=== PATIENT | female | born 1990 | race Caucasian/White ===

== ENCOUNTER 2025-04-20 07:53 | Emergency (ER) | payer BC, SELFPAY ==
--- OUTSIDE RECORDS SUMMARY | 2024-02-18 08:05 | XMS_ITS ---
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 Name Role Phone Scar Wahl Primary Care Provider [phone] REASON FOR VISIT 6 wk Pstpart Encounters Encounter Location Date Provider Diagnosis [facility] [address] [place] [address] 02/18/2024 Scar Wahl Plan Of Treatment No Information Progress Notes * ZHAO, ClaAshokOB: 9 (34 yo F)Acc No.[id number]:02/18/2024 Visit Patient: Aquilino PALACIOS Claire Provider: Falguni Wahl :1990 A ge:33 Y S ex:Female Date:02/18/2024 Address:[address] [place] [address], [address], [id number] Structured Data:Immunization Data Protection : No Subjective: * Chief Complaints: * 1 . 6 wk Pstpart. * Medical History: Objective: * Vitals: Assessment: Plan: * Treatment: * * Electronic signature of Dayron Wahl CNM on 04/20/2025 at 08:56 AM EDT Sign off status: Pending * Provider: Falguni Wahl Date: 02/18/2024 Generated for Macarena marley/Fabruno/eTransmitting on: 04/20/2025 08:56 AM EDT
[2025-04-20] VITALS (7 sets, daily range): BP systolic 127–133; BP diastolic 88–96; PULSE 57–72; RESP 18–20; TEMP 36; O2SAT 99–100; BMI 20.8
--- OUTSIDE RECORDS SUMMARY | 2025-04-20 07:56 | XMS_ITS | Patient Health Record ---
Author Organization [facility] Address [address] [facility] [place] [address] Care Team Providers Care Petrophysicist Name Role Phone ChaoScar marshall Primary Care Provider [phone] Allergies No Known Allergies Reason For Referral No Information Immunizations Vaccine Route Administration Date Status Comme nts Tdap (Adacel) IM Intramuscular 10/08/2023 Administered Plan Of Treatment No Information Insurance Providers Payer Name Payer Address Payer Phone Subscriber Number Group Number Insured Name Patient Relationship to Insured Coverage Start Date Coverage End Date [facility] [employer] [address] [place], [place] [address] [phone] [id number] Linda Zhao Self - patient is the insured
--- OUTSIDE RECORDS SUMMARY | 2025-04-20 07:56 | XMS_ITS | Clinical Summary ---
Author Organization [facility] Address [address] [place] [id number] Care Team Providers Care Autocad Draftsman Name Role Phone Dhruv, Romy Benavides MD Primary Care Provider Allergies No known active allergies Medications SPRINTEC 0.25-35 mg-mcg tabletIndication s:Uses control TAKE 1 TABLET BY MOUTH EVERY DAY 84 tablet 06/21/2019 Active Active Problems Problem Noted Date Diagnosed Date s/p ACL reconstruction, bilaterally 11/07/2011 Regular astigmatism 04/20/2008 Immunizations Immunization Administration Dates Next Due AMB Influenza, IIV3 (Age >=3 years) Preserve Free (Flu Clinic Only) 09/18/2008 DTP 03/18/1991, 0,01/11/1990,10/16 DTaP 04/19/1995 Hepatitis A (Peds) 01/02/1997,07/09/1996, 996 Hepatitis B (Peds) 01/02/1997,07/09/1996, 996 Human Papilloma Virus Vaccine 02/03/2009, 008,08/01/2007 Inactivated Polio Vaccine 04/19/2010 Influenza A (H1N1), Inactiva keyon (Age >=3 Years) 08/27/2009 Influenza, IIV3 (Age >=3 years) 09/15/2013,08/01 MMR 04/29/2002,1989 Meningococcal Vaccine (Menactra) 04/05/2005 Oral Polio Vaccine 04/19/1991, 1,01/11/1990,10/16 Td (Age >=7 Years) 04/29/2002 Tdap 02/05/2012 Family History Medical History Relation Name Comments Good Health Father Good Health Mother Hypertension Paternal Grandmother Cancer-breast No Family History Cancer-colon No Family History Diabetes No Family History Heart Disease No Family History Relation Name Status Comments Father Mother Paternal Grandmother Social History Tobacco Use Types Packs/Day Years Used Date Smoking Tobacco: Never Smokeless Tobacco: Never Tobacco Cessation:Counseling Given: Yes Alcohol Use Standard Drinks/Week Comments Yes 0 (1 standard drink = 0.6 oz pur e alcohol) less than once weekly PHQ-2 Answer Date Recorded PHQ-2 Score 0 11/16/2018 Social Connections Answer Date Recorded Frequency of Communication with Friends and Fami ly Not on file 09/17/2021 Financial Resource Strain Answer Date R ecorded Difficulty of Paying Living Expenses Not on file 09/17/2021 Difficulty of Paying Living Expenses Not on file 09/17/2021 Comments No Sex and Gender Information Value Date Recorded Sex Assigned at Not on file 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 Gender Identity Not on file Sexual Orientation Not on file Obstetrics History Para Term AB IAB SAB Ectopic Multiple Livin g Live Births 0 0 0 0 0 0 0 0 0 0 Last Filed Vital Signs Vital Sign Reading Time Taken Comments Blood Pressure 124/89 02/18/2021 3:43 PM CDT Pulse 75 02/18/2021 3:43 PM CDT Temperature 36.7 C (98 F) 03/16/2014 6:03 PM CDT Respiratory Rate 12 03/16/2014 6:03 PM CDT Oxygen Saturation 97% 02/18/2021 3:43 PM CDT Inhaled Oxygen Concentration - - Weight 56 kg (123 lb 6.4 oz) 02/18/2021 3:43 PM CDT Height 167.6 cm (5' 6) 02/18/2021 3:43 PM CDT Body Mass Index 19.92 02/18/2021 3:43 PM CDT Plan of Treatment Upcoming Encounters Date Type Department Care Team (Late st Contact Info) Description 04/20/2025 9:50 AM CDT Office Visit [facility] [address] [place] [address] Ameena Vann MD [address] [place] [address] Health Maintenance Due Date Last Done Comments HIV for age 15-65 2004 Hepatitis C screening for age 18-79 2007 Pap test for age 21-65 12/09/2018 6, 05/09/2013, 02/05/2012, Additional history exists Depression screening for age 12+ 04/25/2019 04/25/2018 Tetanus booster 02/04/2022 02/05/2012, 04/29/2002 BMI (ht and wt on same day) for age 18+ 02/18/2022 02/18/2021, 04/25/2018, 12/10/2015 COVID-19 vaccine series ( season) 2024 01/05/2021, 12/15/2020 Influenza Vaccine (#1) 2025 3, 09/18/2008, 08/01/2007 Hepatitis B series for 19+ Completed 01/02, 07/09/1996, 06/06/1996 Pneumococcal series for age 6-49 Aged Out No longer eligible based on patient's age to complete this topic Medical Devices Implanted Type Area Contract Preparer Device Identifier Shelf Expiration Date Model / Serial / Lot [id number] 62putty Bone Dbx 5cc [id number] [[id number]] Implanted:Qty: 1 on 05/25/2006 at [facility] Explanted:at [facility] (Quantity not on file) Bone Implants Left: Knee [employer] 02/10/2007 [id number]# / [id number] / Screw Interfer 8x20 [id number] - [id number] Implanted:Qty: 1 on 05/25/2006 at [facility] Ortho Imp.,Screws & Plates Left: Knee [employer]/CONMED [id number]# / / [id number] Screw Interfer 8x25 [id number] - [id number] Implanted:Qty: 1 on 05/25/2006 at [facility] Left: Knee [employer] [id number]# / / [id number] Fast Fix Curved Needle Implanted:Qty: 2 on 05/25/2006 at [facility] Left: Knee [id number] / / Description:FAST FIX CURVED NEEDLE Procedures Procedure Name Priority Date/Time Associated Diagnosis Comments PLUG DRILL OPERATOR THIN PREP PAP SCREEN IMAGED Routine 12/10/2015 12:10 PM CDT Preventative health care from Last 3 Months or Most Recently Relevant to Health Maintenance Results * PLUG DRILL OPERATOR THIN PREP PAP SCREEN IMAGED (12/10/2015 12:10 PM CDT) PLUG DRILL OPERATOR CYTOLOGY See Anatomic Pathology case 12/11/2015 1:[address] [facility] Specimen (specimen) (Cervical) Non-Blood / Unknown 12/10/2015 12:10 PM CDT 12/10/2015 12:10 PM CDT us Joy Lentz MD PATHOLOGY/CYTOLOG Y Final Result [facility] [address] [place] [address], [place] from Last 3 Months or Most Recently Relevant to Health Maintenance Care Teams Autocad Draftsman Relationship Specialty Start Date End Date Romy Bartlett MD [address] [place] [address] PCP - General Family Practice 04/12/11
[2025-04-20 08:35] LABS: Appearance Urine Clear (Clear)
[2025-04-20 08:37] LABS: Ur HCG Qualitative* Negative (Negative)
--- NOTE | 2025-04-20 08:51 | CRLHL7_ITS ---
For Patients: As a result of the Century Cures Act, medical imaging exams and procedure reports are released immediately into your electronic medical record. You may view this report before your referring provider. If you have questions, please contact your health care provider. INDICATION: Left-sided pelvic pain. TECHNIQUE: Ultrasound pelvis transabdominal and transvaginal for better assessment or to better visualize the endometrium. Real-time sonographic images with spectral and color Doppler imaging of the ovaries were obtained. COMPARISON: None. FINDINGS: Uterus measures 7.6 x 3.4 x 4.8 cm. No discrete uterine mass. Endometrial stripe measures 9 mm. No endometrial fluid. Right ovary is 3.6 x 2.2 x 1.9 cm and is within normal limits. Normal-appearing color and spectral Doppler flow in the right ovary. Right adnexal region is unremarkable. Left ovary is 3.7 x 1.5 x 1.5 cm. Collapsing or corpus luteum cyst measures 1.5 cm. Normal-appearing color and spectral Doppler flow in the left ovary. Left adnexal region is unremarkable. Small pelvic free fluid. IMPRESSION: 1. Collapsing or corpus luteum cyst in the left ovary measures 1.5 cm. 2. Small pelvic free fluid is likely physiologic. Dictated by Jacky Merrill MD @ 04/20/2025 10:04:13 AM Dictated by: Jacky Merrill MD @ 04/20/2025 10:04:29 (Electronically Signed)
[2025-04-20 09:04] LABS: Lactate* 0.8 mmol/L (0.5-1.9)
[2025-04-20 09:07] LABS: Hematocrit 39.6 % (33.0-51.0); Hemoglobin* 13.1 gm/dL (12.0-16.0); Immature Granulocytes Abs Auto 0.00 K/uL (0.00-0.30); Immature Granulocytes Pct Auto 0.0 %; Mean Corpuscular HGB Conc 33 gm/dL (32-36); Mean Corpuscular Hemoglobin 29 pg (26-34); Mean Corpuscular Volume 88 fL (80-100); RDW Coefficient of Variation % 12.4 % (11.5-15.5); Red Blood Count 4.48 m/uL (4.00-5.20); White Blood Count* 3.74 K/uL (4.50-11.00)
[2025-04-20 09:22] LABS: Lymphocytes Absolute Auto 1.20 K/uL (0.90-2.90); Slide Review Reflex No
[2025-04-20 09:23] LABS: Chloride* 104 mmol/L (96-114)
[2025-04-20 09:24] LABS: Albumin* 4.2 g/dL (3.3-5.0); Potassium* 4.0 mmol/L (3.6-5.1); Sodium* 135 mmol/L (135-149)
[2025-04-20 09:27] LABS: Alanine Aminotransferase* 15 U/L (4-35); Alkaline Phosphatase* 53 U/L (40-150); Anion Gap 6 mEq/L (7-15); Aspartate Amino Transferase* 27 U/L (12-35); Bilirubin Direct* 0.0 mg/dL (0.0-0.5); Bilirubin Total* 1.2 mg/dL (0.1-1.5); Blood Urea Nitrogen* 17 mg/dL (5-24); Calcium* 8.8 mg/dL (8.4-10.6); Carbon Dioxide* 25 mmol/L (20-32); Creatinine* 0.8 mg/dL (0.5-1.5); Est. Creatinine Clearance* 90.66; Estimated Glomerular Filt Rate 98 ml/min; Glucose* 87 mg/dL (60-115); Total Protein* 6.7 g/dL (6.0-8.3)
[2025-04-20 09:33] LABS: HCG Qualitative Serum* Negative (Negative)
[2025-04-20] MEDS: ONDANSETRON 2 MG/ML inj 4 MG IVP (09:35)
[2025-04-20 09:45] LABS: Procalcitonin* < 0.03 ng/mL (<0.50)
--- NOTE | 2025-04-20 11:46 | ED_ITS ---
HPI - Abdominal Pain General Date Seen: 04/20/25 Chief Complaint: Abdominal Pain Stated Complaint: abdominal pain Time Seen by Provider: 04/20/25 08:53 Source: patient and family Mode of arrival: ambulatory Limitations: no limitations History of Present Illness HPI narrative: Patient is a aurora 34-year-old female who presents here with her significant other for evaluation of acute onset of left lower sided pelvic pain, this woke her up from sleep at approximately 4:00 a.m., with some nausea, she did not take any medications for this, the pain is crampy in nature with some radiation to her did back. She does not have any dysuria frequency her meds her E associated with this, she has had no diarrhea, she does remember having this before was fine yesterday, denies any fevers chills or sweats, there is no cough cold-like symptoms, recent delivery of a vaginal delivery 15 months ago. She is just starting to get her periods with her last period on April 02. She is the daughter of both Humberto and Rocio Zhao. Related Data Home Medications ?Medication ?Instructions ?Recorded ?Confirmed No Known Home Medications 04/20/2501/09 Allergies Allergy/AdvReac Type Severity Reaction Status Date / Time No Known Drug Allergies Allergy Verified 04/20/25 08:38 Review of Systems Status of ROS Reports: 10 or more systems reviewed and unremarkable except as noted in History and below [facility] Social History Smoking Status: Never smoker How often do you have a drink containing alcohol: monthly or less AUDIT-C Alcohol total score: 1 Non-prescribed substance use: denies use Exam Narrative: Exam Narrative: She appears in some mild distress, vital signs are listed in normal, pupils equal round reactive to light there is no scleral icterus redness or TMs are normal bilaterally oropharynx is normal good hydration status no redness, no trismus mouth opening normal no lymphadenopathy anterior posterior chains, there is no meningismus noted, chest is good air entry bilaterally with no wheezing crackles noted, her heart sounds are normal her abdomen is scaphoid, deep in the left lower quadrant there is some mild discomfort, no peritoneal signs no CVA tenderness, no organomegaly is noted, bowel sounds are normal, skin reveals no petechiae rashes neurologically intact moving all extremities. Const: Vital Signs, click to edit/add: Vital Signs - 24 hr 04/20/25 08:07 04/20/25 09:42 04/20/25 09:43 Temperature 96.8 F L Pulse Rate 57 L 72 Pulse Rate [Pulse Oximeter] 64 Respiratory Rate 20 18 Blood Pressure 133/96 H Blood Pressure [Ri ght Upper Arm] 127/88 Pulse Oximetry 99 99 100 Oxygen Delivery Me thod Room Air 04/20/25 09:45 04/20/25 10:00 04/20/25 10:02 Temperature Pulse Rate 63 72 66 Pulse Rate [Pulse Oximeter] Respiratory Rate Blood Pressure 129/96 H Blood Pressure [Ri ght Upper Arm] Pulse Oximetry 100 100 100 Oxygen Delivery Me thod 04/20/25 10:15 Temperature Pulse Rate 67 Pulse Rate [Pulse Oximeter] Respiratory Rate Blood Pressure Blood Pressure [Ri ght Upper Arm] Pulse Oximetry 100 Oxygen Delivery Me thod Course Course ED Course: Her pain improved here with are coarse, I discussed with her that her vital signs are normal, her ultrasound is consistent with a ruptured corpus luteum cyst, and I discussed this with her she does not have any hematuria, or any signs of renal colic, and I would prefer not to do a CT scan in this incidents, as increasing her chance with extraneous radiation. She was in agreement, I think pain medication to have on hand would be important, review of the INDUSTRIAL SAFETY ENGINEER did not show any outstanding prescriptions or any concerning behavior. Tylenol ibuprofen her discussed, with worsening signs and symptoms are discussed also the per follow-up here. I do not think she needs follow-up with OBGYN at the present time. Vital Signs Vital signs: Initial Vital Signs Temperature 96.8 F L 04/20/25 08:07 Temperature Source Temporal Artery Scan 04/20/25 08:07 Pulse Rate 64 04/20/25 08:07 Respiratory Rate 20 04/20/25 08:07 Blood Pressure 127/88 04/20/25 08:07 Blood Pressure Mean 101 04/20/25 08:07 Pulse Oximetry 99 04/20/25 08:07 Oxygen Delivery Method Room Air 04/20/25 08:07 Vital Signs Temperature 96.8 F L 04/20/25 08:07 Pulse Rate 64 04/20/25 08:07 Respiratory Rate 20 04/20/25 08:07 Blood Pressure 127/88 08/04/25 08:07 Pulse Oximetry 99 04/20/25 08:07 Oxygen Delivery Method Room Air 04/20/25 08:07 Temperature 96.8 F L 04/20/25 08:07 Pulse Rate 67 04/20/25 10:15 Respiratory Rate 18 04/20/25 09:43 Blood Pressure 129/96 H 04/20/25 10:02 Pulse Oximetry 100 04/20/25 10:15 Oxygen Delivery Method Room Air 04/20/25 08:07 Medications Administered Medications: Discontinued Medications Generic Name Dose Route Start Last Admin Trade Name Freq PRN Reason Stop Dose Admin Sodium Chloride 1,000 mls @ 1,000 mls/hr 04/20/25 09:00 04/20/25 10:25 0.9 % Sodium Chloride 1000 Ml IV 04/20/25 09:59 Infused .Q1H KVNG Infusion Sodium Chloride 1,000 mls @ 1,000 mls/hr 04/20/25 09:00 04/20/25 10:25 0.9 % Sodium Chloride 1000 Ml IV 04/20/25 09:59 Not Given .Q1H KVNG Ketorolac Tromethamine 30 mg 04/20/25 08:51 04/20/25 09:38 Ketorolac 30 Mg/Ml Inj IVP 04/20/25 08:52 15 mg ONCE ONE Administration Ondansetron HCl 4 mg 04/20/25 08:51 04/20/25 09:35 Ondansetron 2 Mg/Ml Inj IVP 04/20/25 08:52 4 mg ONCE ONE Administration MDM - Abdominal Pain MDM Narrative Medical decision making narrative: During the evaluation of this patient I considered multiple differential diagnosis including life-threatening differentials which are appendicitis, aortic aneurysm, mesenteric ischemia, bowel perforation, ectopic , volvulus and bowel obstruction, other differential diagnosis include but are not limited to inflammatory bowel disease, cholecystitis, pancreatitis, hepatitis, gastritis, GERD, diverticulitis, peptic ulcer disease, pyelonephritis/UTI, renal colic/stone, pelvic inflammatory disease, cervicitis, endometritis, intrauterine , dysfunctional uterine bleeding, ovarian cyst/torsion, spontaneous as well as other etiologies Medical Records Attestation: I reviewed the patient's medical records. Lab Data Attestation: I reviewed the patient's lab results. Labs: Lab Results 04/20/25 04/20/25 Range/Units 08:25 08:46 WBC 3.74 L (4.50-11.00) K/uL RBC 4.48 (4.00-5.20) m/uL Hgb 13.1 (12.0-16.0) gm/dL Hct 39.6 (33.0-51.0) % MCV 88 (80-100) fL MCH 29 (26-34) pg MCHC 33 (32-36) gm/dL RDW Coeff of Betzaida 12.4 (11.5-15.5) % Plt Count 195 (140-440) K/uL Neut % (Auto) 58.8 (42.0-72.0) % Lymph % (Auto) 31.6 (20-44) % [place] % (Auto) 7.2 (0.0-11.0) % Eos % (Auto) 1.3 (0.0-7.0) % Baso % (Auto) 1.1 (0.0-3.0) % Neut # (Auto) 2.20 (1.7-7.0) K/uL Lymph # (Auto) 1.20 (0.90-2.90) K/uL [place] # (Auto) 0.30 (0.00-0.90) K/UL Eos # (Auto) 0.00 (0.00-0.50) K/uL Baso # (Auto) 0.00 (0.00-0.30) K/uL Abs Immat Gran (auto) 0.00 (0.00-0.30) K/uL Imm/Tot Granulo (auto) 0.0 % Sodium 135 (135-149) mmol/L Potassium 4.0 (3.6-5.1) mmol/L Chloride 104 (96-114) mmol/L Carbon Dioxide 25 (20-32) mmol/L Anion Gap 6 L (7-15) mEq/L BUN 17 (5-24) mg/dL Creatinine 0.8 (0.5-1.5) mg/dL Estimated Creat Clear 90.66 Estimated GFR 98 ml/min Glucose 87 (60-115) mg/dL Calcium 8.8 (8.4-10.6) mg/dL Total Bilirubin 1.2 (0.1-1.5) mg/dL Direct Bilirubin 0.0 (0.0-0.5) mg/dL AST 27 (12-35) U/L ALT 15 (4-35) U/L Alkaline Phosphatase 53 (40-150) U/L C-Reactive Protein < 0.5 L (0.5-1.0) mg/dL Total Protein 6.7 (6.0-8.3) g/dL Albumin 4.2 (3.3-5.0) g/dL Amylase 85 (18-89) U/L Lipase 45 (23-300) U/L Procalcitonin < 0.03 L (<0.50) ng/mL HCG, Qual Negative (Negative) Urine Color Yellow (Yellow) Urine Appearance Clear (Clear) Urine pH 7.0 (5.0-8.5) Ur Specific Kinde 1.020 (1.000-1.030) Urine Protein Negative (Negative) Urine Glucose (UA) Negative (Negative) Urine Ketones 1+ A (Negative) Urine Blood Negative (Negative) Urine Nitrite Negative (Negative) Urine Bilirubin Negative (Negative) Urine Urobilinogen 0.2 (0.2-1.0) Ur Leukocyte Esterase Negative (Negative) Urine HCG, Qual Negative (Negative) Imaging Data Abdominal ultrasound: Attestation: I have reviewed the pertinent imaging results. My impression: No acute finding Radiologist's impression: [place] [address] Diagnostic Imaging Report Patient: Linda Zhao MR#: [id number] : 1990 Acct:[id number] Loc: ED Service Date: 04/20/[address]: Ordering Physician: Laith Valladares M.D. Date of Service: 04/20/25 Procedure(s): US pelvic TA and TV Accession Number(s): [id number] cc: Laith Valladares M.D.; Romy Bartlett M.D.~ For Patients: As a result of the 21st Century Cures Act, medical imaging exams and procedure reports are released immediately into your electronic medical record. You may view this report before your referring provider. If you have questions, please contact your health care provider. INDICATION: Left-sided pelvic pain. TECHNIQUE: Ultrasound pelvis transabdominal and transvaginal for better assessment or to better visualize the endometrium. Real-time sonographic images with spectral and color Doppler imaging of the ovaries were obtained. COMPARISON: None. FINDINGS: Uterus measures 7.6 x 3.4 x 4.8 cm. No discrete uterine mass. Endometrial stripe measures 9 mm. No endometrial fluid. Right ovary is 3.6 x 2.2 x 1.9 cm and is within normal limits. Normal-appearing color and spectral Doppler flow in the right ovary. Right adnexal region is unremarkable. Left ovary is 3.7 x 1.5 x 1.5 cm. Collapsing or corpus luteum cyst measures 1.5 cm. Normal-appearing color and spectral Doppler flow in the left ovary. Left adnexal region is unremarkable. Small pelvic free fluid. IMPRESSION: 1. Collapsing or corpus luteum cyst in the left ovary measures 1.5 cm. 2. Small pelvic free fluid is likely physiologic. Dictated by Jacky Merrill MD @ 04/20/2025 10:04:13 AM Dictated by: Jacky Merrill MD @ 04/20/2025 10:04:29 (Electronically Signed) Discharge Plan Discharge Clinical Impression: Abdominal pain, Ovarian cyst rupture, Corpus luteum cyst rupture Patient Disposition: Home w/ Parent or Adult Condition: Improved Instructions: Ovarian Cyst (ED), Abdominal Pain (ED), Ruptured Ovarian Cyst (ED) Additional Instructions: Home rest use of Tylenol ibuprofen, as 1st line, can supplement this with some oxycodone as needed for pain. Increasing abdominal pain, fevers chills, or other symptoms that were not seeing here, I would recommend then coming back and being re seen. This should hopefully go way over the next day or 2. No need for follow-up for this OBGYN or ultrasound. He goes without saying, but avoidance of alcohol with the oxycodone as it will make you tired, or driving is suggested. I did give you some Zofran also for nausea, together with the oxycodone these do cause constipation so be warned and treat yourself as needed. Activity Level: Light activity Prescriptions: No Action No Known Home Medications Follow Up/Referrals: Romy Bartlett MD [Primary Care Provider, Family Practice] Stand Alone Forms: [employer]inco Info Instructions
== END 2025-04-20 11:01 | disposition home or self-care (01) ==
PROVIDERS: Emergency Provider Family Medicine; PCP Family Medicine
DX: N83.12 Corpus luteum cyst of left ovary (principal); K66.1 Hemoperitoneum; R10.9 Unspecified abdominal pain
CPT/HCPCS: 36415; 76830; 76856; 80048; 80076; 81001; 81003; 81025; 82150; 83605; 83690; 84145; 84703; 85025; 86140; 93976; 96361; 96374; 96375; 99284; J1885; J2405; J7030